=== PATIENT | female | born 1985 | race African-American/Black ===

== ENCOUNTER 2017-07-29 23:39 | Emergency (ER) | payer OTHER ==
[~2017-07-29 23:39] MED LIST: IBUP800T23 PO; PENI500T PO; PERI0.126 SWISH-SPIT
[2017-07-29 23:41] VITALS: BP 180/90; PULSE 96; RESP 16; TEMP 98.8; O2SAT 100
[2017-07-29] MEDS ORDERED: CLIN1CAP5 PO (23:59)
[2017-07-29] MEDS ORDERED: TYLETAB34 PO (23:59)
[2017-07-30] MEDS ORDERED: oxyCODONE/ACETAMINOPHEN 5 MG/325 MG TAB PO ONE
--- NOTE | 2017-07-30 | PD ---
HPI Chief Complaint: Oral / Dental Pain or Problem Time Seen by Provider: 23:49 Travel History International Travel<30 days: No Contact w/Intl Traveler<30days: No Traveled to known affect area: No History of Present Illness HPI Patient is a 31 year old female presenting to the Emergency Department for evaluation of right lower tooth pain. Pt states this has been ongoing for over a week, she reports being seen here last week and was given antibiotics and ibuprofen which she reports compliance with. She states the pain is a 10/10 and is aching and throbbing. She states she cannot bite down. She denies any fevers , chills, nausea or vomiting. PFSH Past Medical History Medical History: Denies Significant Hx Hypertension: Yes ?: Not LMP: 07/26/17 : 5 Para: 5 Past Surgical History Section: Yes (x4) Social History Alcohol Use: No Tobacco Use: Yes Substance Use: No Allergies-Medications (Allergen,Severity, Reaction): Coded Allergies: No Known Allergies (Unverified , 07/29/17) Reported Meds & Prescriptions Reported Meds & Active Scripts Active Clindamycin (Clindamycin HCl) 150 Mg Cap 300 Mg PO Q8HR 10 Days Tylenol-Codeine #3 (Acetaminophen-Codeine) 300-30 mg Tab 1 Tab PO Q4H PRN Peridex Liq (Chlorhexidine Gluconate (Mouth) Liq) 0.12% Soln 15 Ml SWISH-SPIT BID 14 Days Ibuprofen 800 Mg Tab 800 Mg PO Q8H PRN Penicillin V Potassium 500 Mg Tab 500 Mg PO Q6H 10 Days Review of Systems Except as stated in HPI: all other systems reviewed are Neg HENT: Positive: Dental Difficulties Physical Exam Narrative GENERAL: Well developed, well nourished female, appears uncomfortable in no distress acutely. SKIN: Warm and dry. HEAD: Normocephalic. EYES: No scleral icterus. No injection or drainage. MOUTH: Mucous membranes moist, no lesions, tongue and gums appear normal. Significant caries throughout mouth, teeth are missing or broken at the gum line. No obvious abscess noted.No edema noted. NECK: Supple, trachea midline. No JVD or lymphadenopathy. CARDIOVASCULAR: Regular rate and rhythm without murmurs, gallops, or rubs. RESPIRATORY: Breath sounds equal bilaterally. No accessory muscle use. GASTROINTESTINAL: Abdomen soft, non-tender, nondistended. MUSCULOSKELETAL: No cyanosis, or edema. BACK: Nontender without obvious deformity. No CVA tenderness. Data Data Last Documented VS Vital Signs Date Time Temp Pulse Resp B/P (MAP) Pulse Ox O2 Delivery O2 Flow Rate FiO2 07/30/17 00:03 07/29/17 23:41 98.8 96 16 100 Room Air Orders Orders Oxycodone-Acetamin 5-325 Mg (Percocet (07/30/17 00:00) MDM Medical Decision Making Medical Screen Exam Complete: Yes Emergency Medical Condition: Yes Medical Record Reviewed: Yes Interpretation(s) Vital Signs Date Time Temp Pulse Resp B/P (MAP) Pulse Ox O2 Delivery O2 Flow Rate FiO2 07/30/17 00:03 07/29/17 23:41 98.8 96 16 180/90 (120) 100 Room Air Differential Diagnosis dentalgia vs caries vs abscess vs neuralgia Narrative Course Pt has significant dental disease. VSS. Explained to patient that she needs to be seen and evaluated by a dentist. At this time we will change her antibiotics , she will be given a short course of pain medication. She was encouraged to return to the ED for any new or worsening symptoms. She was given a list of local dental clinics. She verbalized understanding. Pt is stable for discharge. Diagnosis Primary Impression: Dental caries Additional Impression: Pain, dental Referrals: Dentist 2 days Patient Instructions: Dental Caries (DC), General Instructions Additional Instructions: Follow up with a dentist Take medications as directed Return to the Emergency Department for new or worsening symptoms Med/Other Pt SpecificInfo: Prescription(s) given Scripts Clindamycin (Clindamycin) 150 Mg Cap 300 MG PO Q8HR for Infection for 10 Days, CAP 0 Refills Prov: Lauren Lyon 07/29/17 Acetaminophen-Codeine (Tylenol-Codeine #3) 300-30 mg Tab 1 TAB PO Q4H Y for PAIN, #10 TAB 0 Refills Prov: Lauren Lyon 07/29/17 Disposition: 01 DISCHARGE HOME Condition: Stable Lauren Lyon Jul 30, 2017 00:00
== END 2017-07-30 00:15 | disposition home or self-care (01) ==
LOC: NEPK 23:39
DX: K02.9 Dental caries, unspecified (principal)
CPT/HCPCS: 99284

== ENCOUNTER 2018-04-09 22:26 | Emergency (ER) | payer MEDICAID, OTHER ==
[~2018-04-09 22:26] MED LIST changes: +CLIN150C14 PO; +IBUP1TAB7 PO; -IBUP800T23 PO; +TYLETAB34 PO
[2018-04-09 22:51] VITALS: BP 171/101; PULSE 94; RESP 18; TEMP 98.2; O2SAT 100
[2018-04-09 23:32] VITALS: BP 157/100; PULSE 83; RESP 14; O2SAT 100
[2018-04-10] MEDS ORDERED: diphenhydrAMINE HCL 50 MG/ML VIAL IV PUSH ONE (00:30)
[2018-04-10] MEDS ORDERED: KETOROLAC TROMETHAMINE 30 MG/ML (IVP) VIAL IV PUSH ONE (00:30)
[2018-04-10] MEDS ORDERED: METOCLOPRAMIDE HCL 10 MG/2 ML VIAL IV PUSH ONE (00:30)
[2018-04-10] MEDS ORDERED: DEXAMETHASONE SOD PHOS 20 MG/5 ML VIAL IV PUSH ONE (00:30)
--- NOTE | 2018-04-10 03:33 | PD ---
HPI Chief Complaint: Headache Time Seen by Provider: 00:15 Travel History International Travel<30 days: No Contact w/Intl Traveler<30days: No Traveled to known affect area: No History of Present Illness HPI 32-year-old female with typical headache. She has a history of migraines and is experiencing a bad one. Patient is a smoker of more than a pack a day. She denies nausea vomiting. Headache is frontal and mostly on the right side. Pain is described as a squeezing. Onset was a few hours prior to arrival. PFSH Past Medical History Diminished Hearing: No Hypertension: Yes ?: Not LMP: 04/04/18 : 5 Para: 5 Past Surgical History Surgical History: No Previous Surgery Section: Yes (x4) Social History Alcohol Use: Yes Tobacco Use: Yes Substance Use: No Allergies-Medications (Allergen,Severity, Reaction): Coded Allergies: No Known Allergies (Unverified , 07/29/17) Reported Meds & Prescriptions Reported Meds & Active Scripts Active No Active Prescriptions or Reported Medications Review of Systems Except as stated in HPI: all other systems reviewed are Neg Neurologic: Positive: Headache Physical Exam Narrative GENERAL: 32-year-old female in moderate distress secondary to pain SKIN: Focused skin assessment warm/dry. HEAD: Atraumatic. Normocephalic. EYES: Pupils equal and round. No scleral icterus. No injection or drainage. ENT: No nasal bleeding or discharge. Mucous membranes pink and moist. NECK: Trachea midline. No meningismus CARDIOVASCULAR: Regular rate and rhythm. No murmur appreciated. RESPIRATORY: No accessory muscle use. Clear to auscultation. Breath sounds equal bilaterally. GASTROINTESTINAL: Abdomen soft, non-tender, nondistended. Hepatic and splenic margins not palpable. MUSCULOSKELETAL: No obvious deformities. No clubbing. No cyanosis. No edema. NEUROLOGICAL: Awake and alert. No obvious cranial nerve deficits. Motor grossly within normal limits. Normal speech. No cerebellar findings Data Data Last Documented VS Vital Signs Date Time Temp Pulse Resp B/P (MAP) Pulse Ox O2 Delivery O2 Flow Rate FiO2 04/09/18 23:32 83 14 157/100 (119) 100 Room Air 04/09/18 22:51 98.2 Orders Orders Ed Urine Pregnancytest Poc (04/10/18 00:18) Metoclopramide Inj (Reglan Inj) (04/10/18 00:30) Ketorolac Inj (Toradol Inj) (04/10/18 00:30) Diphenhydramine Inj (Benadryl Inj) (04/10/18 00:30) Dexamethasone Inj (Decadron Inj) (04/10/18 00:30) MDM Medical Decision Making Medical Screen Exam Complete: Yes Emergency Medical Condition: Yes Differential Diagnosis Migraine headache Narrative Course Patient was seen and evaluated in the emergency department. She was given normal saline Toradol Reglan Decadron and Benadryl. Her symptoms have completely resolved. Patient is discharged home Diagnosis Primary Impression: Migraine Qualified Codes: G43.909 - Migraine, unspecified, not intractable, without status migrainosus Scripts No Active Prescriptions or Reported Meds Disposition: 01 DISCHARGE HOME Condition: Good Ramandeep Stephenson DO Apr 10, 2018 03:33
== END 2018-04-10 04:08 | disposition home or self-care (01) ==
LOC: NEPC 22:26
DX: G43.909 Migraine, unspecified, not intractable, without status migrainosus (principal); F17.210 Nicotine dependence, cigarettes, uncomplicated
CPT/HCPCS: 96374; 96375; 99284; J1100; J1200; J1885; J2765

== ENCOUNTER 2018-04-12 12:47 | Observation (INO) | payer MEDICAID ==
[2018-04-12] VITALS (7 sets, daily range): BP systolic 146–177; BP diastolic 72–98; PULSE 70–80; RESP 16–20; TEMP 98.1–99; O2SAT 96–100
[~2018-04-12] VITALS: Ht 167.6 cm; Wt 73.0 kg
[2018-04-12] MEDS ORDERED: SODIUM CHLORIDE 0.9% FLUSH 10 ML FLUSH IVF PRN (13:30)
--- NOTE | 2018-04-12 13:48 | PD ---
HPI Chief Complaint: Syncope/Near-Syncope Time Seen by Provider: 13:22 Travel History International Travel<30 days: No Contact w/Intl Traveler<30days: No Traveled to known affect area: No History of Present Illness HPI 32-year-old female presents to emergency department via EMS after having a syncopal episode while at work today. He does not know she hit her head, but she did wake up on the floor. She reports waking up with nausea, vomiting, diarrhea this morning. She says she has been experiencing chest pain and shortness of breath for 1 week. 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 Chest pain is midsternal. Denies cardiac history. Denies fevers. She is having a headache and says she was seen here 3 days ago for her headache. Reports lower abdominal pain, over her bladder, and dysuria. She is on her menstrual cycle now. Reports recent travel by vehicle and just came home yesterday. Denies perceptual use. Reports tobacco use. Chest pain shortness of breath or worse with activity. No radiation of pain. Rates pain 7/10. Says she tried drinking apple cider for her symptom management. Has not tried any other medications or treatments to alleviate her symptoms. Describes it as a pressure. No primary care provider. History of toxemia, DVT, hypertension. No known allergies. Has no other medical complaints. No other modifying factors or associated signs and symptoms. [facility] Past Medical History Diminished Hearing: No Hypertension: Yes ?: Not LMP: 04/08/18 : 5 Para: 5 Past Surgical History Section: Yes (x4) Social History Alcohol Use: Yes Tobacco Use: Yes Substance Use: No Allergies-Medications (Allergen,Severity, Reaction): Coded Allergies: No Known Allergies (Unverified Allergy, Unknown, 04/12/18) Reported Meds & Prescriptions Reported Meds & Active Scripts Active No Active Prescriptions or Reported Medications Review of Systems Except as stated in HPI: all other systems reviewed are Neg Physical Exam Narrative GENERAL: Well-nourished, well-developed black female patient, in no acute distress; afebrile SKIN: Warm and dry. HEAD: Atraumatic. Normocephalic. EYES: Pupils equal and round. No scleral icterus. No injection or drainage. ENT: Mucosa pink and moist. Airway patent. NECK: Trachea midline. CARDIOVASCULAR: Regular rate and rhythm. No murmur appreciated. RESPIRATORY: No accessory muscle use. Clear to auscultation. Breath sounds equal bilaterally. GASTROINTESTINAL: Abdomen soft, nontender, nondistended; I am unable to elicit any tenderness on exam except for over the bladder and it is nondistended. Hepatic and splenic margins not palpable. Bowel sounds are active 4 quadrants. Nonrigid. No guarding. BACK: No CVA tenderness. MUSCULOSKELETAL: No obvious deformities. No clubbing. No cyanosis. No edema. NEUROLOGICAL: Awake and alert. Oriented 3. No obvious cranial nerve deficits. Motor grossly within normal limits. Normal speech. PSYCHIATRIC: Appropriate mood and affect; insight and judgment normal. Data Data Last Documented VS Vital Signs Date Time Temp Pulse Resp B/P (MAP) Pulse Ox O2 Delivery O2 Flow Rate FiO2 04/12/18 15:42 74 17 148/79 (102) 100 Room Air 04/12/18 12:57 99.0 Orders Orders Electrocardiogram (04/12/18 13:27) Basic Metabolic Panel (Bmp) (04/12/18 13:27) Ckmb (Isoenzyme) Profile (04/12/18 13:27) Complete Blood Count With Diff (04/12/18 13:27) Magnesium (Mg) (04/12/18 13:27) Prothrombin Time / Inr (Pt) (04/12/18 13:27) Act Partial Throm Time (Ptt) (04/12/18 13:27) Troponin I (04/12/18 13:27) Ecg Monitoring (04/12/18 13:27) Iv Access Insert/Monitor (04/12/18 13:27) Oximetry (04/12/18 13:27) Oxygen Administration (04/12/18 13:27) Sodium Chloride 0.9% Flush (Ns Flush) (04/12/18 13:30) Chest, Pa & Lat (04/12/18 13:27) Urinalysis - C+S If Indicated (04/12/18 13:27) Ed Urine Pregnancytest Poc (04/12/18 13:27) Ct Brain W/O Iv Contrast(Rout) (04/12/18 ) Ct Pulmonary Angiogram (04/12/18 ) Acetaminophen (Tylenol) (04/12/18 14:45) CKMB (04/12/18 14:00) CKMB% (04/12/18 14:00) Potassium Chloride (Kcl) (04/12/18 15:45) Iohexol 350 Inj (Omnipaque 350 Inj) (04/12/18 15:59) Admit Order (Ed Use Only) (04/12/18 16:33) Labs Laboratory Tests Test 04/12/18 14:00 04/12/18 14:10 White Blood Count 5.6 TH/MM3 Red Blood Count 5.17 MIL/MM3 Hemoglobin 8.7 GM/DL Hematocrit 28.3 % Mean Corpuscular Volume 54.8 FL Mean Corpuscular Hemoglobin 16.8 PG Mean Corpuscular Hemoglobin Concent 30.8 % Red Cell Distribution Width 23.8 % Platelet Count 236 TH/MM3 Mean Platelet Volume 8.3 FL CBC Comment AUTO DIFF Differential Total Cells Counted 100 Neutrophils % (Manual) 33 % Lymphocytes % 55 % Monocytes % 5 % Eosinophils % 6 % Basophils % 1 % Neutrophils # (Manual) 1.8 TH/MM3 Differential Comment FINAL DIFF MANUAL Platelet Estimate NORMAL Platelet Morphology Comment NORMAL Prothrombin Time 11.5 SEC Prothromb Time International Ratio 1.1 RATIO Activated Partial Thromboplast Time 27.3 SEC Blood Urea Nitrogen 6 MG/DL Creatinine 0.60 MG/DL Random Glucose 79 MG/DL Calcium Level 8.3 MG/DL Magnesium Level 2.0 MG/DL Sodium Level 143 MEQ/L Potassium Level 3.2 MEQ/L Chloride Level 110 MEQ/L Carbon Dioxide Level 21.5 MEQ/L Anion Gap 12 MEQ/L Estimat Glomerular Filtration Rate 138 ML/MIN Total Creatine Kinase 136 U/L Creatine Kinase MB LESS THAN 0.5 NG/ML Troponin I LESS THAN 0.02 NG/ML Urine Color Straw Urine Turbidity CLEAR Urine pH 8.0 Urine Specific [place] 1.004 Urine Protein NEG mg/dL Urine Glucose (UA) NEG mg/dL Urine Ketones TRACE mg/dL Urine Occult Blood LARGE Urine Nitrite NEG Urine Bilirubin NEG Urine Urobilinogen LESS THAN 2 mg/dL Urine Leukocyte Esterase NEG Urine RBC 6 /hpf Urine WBC LESS THAN 1 /hpf Urine Squamous Epithelial Cells 1 /hpf Urine Bacteria RARE /hpf Microscopic Urinalysis Comment CULT NOT INDICATED MDM Medical Decision Making Medical Screen Exam Complete: Yes Emergency Medical Condition: Yes Medical Record Reviewed: Yes Differential Diagnosis Gastroenteritis, dehydration, electrolyte imbalance, PE Narrative Course 32-year-old female with chest pain, shortness of breath 1 week with onset of nausea, vomiting, diarrhea and syncopal episode today. Arrived via EMS. Patient has history of DVTs. Is not on anticoagulant therapy. I discussed the patient with Dr. Lopez and she agrees with my plan of care and will evaluate the patient. EKG with normal sinus rhythm; no ST elevation or depression; reviewed by Dr. Lopez. 1529: CBC with signs of anemia; hemoglobin 8.7; Patient does not have any baseline labs to compare her levels to. Otherwise CMP unremarkable. 40 meq KCL ordered. CK-MB less than 0.5. Troponin less than 0.02. Urinalysis without signs of infection. 1629: Chest x-ray, head CT, CT pulmonary angiogram concludes: Chest X-Ray 04/12/18 1327 Signed Impressions: CONCLUSION: 1. No acute cardiopulmonary disease. Head CT 04/12/18 0000 Signed Impressions: CONCLUSION: 1. Negative for acute process CT Angiography 04/12/18 0000 Signed Impressions: CONCLUSION: 1. No CT evidence for pulmonary artery embolism. 2. 2.3 cm indeterminate low density lesion extending from the posterior right cardiac border, likely pericardial in etiology and most consistent with pericar dial cyst. 3. Otherwise, unremarkable CTA examination of the chest. Discussed lab and radiology findings with the patient. Discussed findings with Dr. Garcia also. Patient will be admitted into the chest pain center for further treatment and evaluation. Physician Communication Physician Communication DR[employer] PURCH[employer]ER Diagnosis Primary Impression: Episode of syncope Qualified Codes: R55 - Syncope and collapse Additional Impressions: Chest pain Qualified Codes: R07.9 - Chest pain, unspecified Vomiting and diarrhea Admitting Information Admitting Physician Requests: Observation Scripts No Active Prescriptions or Reported Meds Ro Gunderson Apr 12, 2018 13:48
--- NOTE | 2018-04-12 14:01 | PD ---
Physical Exam Date Seen by Provider: Apr 12, 2018 Time Seen by Provider: 13:59 Narrative 32-year-old female came to the emergency room with history of a syncopal episode. Patient says that she was nauseous and vomited this morning. She also has been having some shortness of breath since yesterday. She said she was coming back to her car and was hot when she had the episode. No history of chest pain just before she passed out. No history of palpitation. She is being seen by my nurse practitioner I am supervising her. Patient has history of DVT in the past few years ago and was on blood thinners. Currently she is not on any blood thinners. She is a heavy smoker and smokes marijuana as well. Vital signs were relatively stable. Awaiting for blood test and CT angiogram of the chest. Data Data Last Documented VS Vital Signs Date Time Temp Pulse Resp B/P (MAP) Pulse Ox O2 Delivery O2 Flow Rate FiO2 04/12/18 16:30 77 18 172/72 (105) 100 Room Air 04/12/18 12:57 99.0 Orders Orders Electrocardiogram (04/12/18 13:27) Basic Metabolic Panel (Bmp) (04/12/18 13:27) Ckmb (Isoenzyme) Profile (04/12/18 13:27) Complete Blood Count With Diff (04/12/18 13:27) Magnesium (Mg) (04/12/18 13:27) Prothrombin Time / Inr (Pt) (04/12/18 13:27) Act Partial Throm Time (Ptt) (04/12/18 13:27) Troponin I (04/12/18 13:27) Ecg Monitoring (04/12/18 13:27) Iv Access Insert/Monitor (04/12/18 13:27) Oximetry (04/12/18 13:27) Oxygen Administration (04/12/18 13:27) Sodium Chloride 0.9% Flush (Ns Flush) (04/12/18 13:30) Chest, Pa & Lat (04/12/18 13:27) Urinalysis - C+S If Indicated (04/12/18 13:27) Ed Urine Pregnancytest Poc (04/12/18 13:27) Ct Brain W/O Iv Contrast(Rout) (04/12/18 ) Ct Pulmonary Angiogram (04/12/18 ) Acetaminophen (Tylenol) (04/12/18 14:45) CKMB (04/12/18 14:00) CKMB% (04/12/18 14:00) Potassium Chloride (Kcl) (04/12/18 15:45) Iohexol 350 Inj (Omnipaque 350 Inj) (04/12/18 15:59) Admit Order (Ed Use Only) (04/12/18 16:33) Labs Laboratory Tests Test 04/12/18 14:00 04/12/18 14:10 White Blood Count 5.6 TH/MM3 Red Blood Count 5.17 MIL/MM3 Hemoglobin 8.7 GM/DL Hematocrit 28.3 % Mean Corpuscular Volume 54.8 FL Mean Corpuscular Hemoglobin 16.8 PG Mean Corpuscular Hemoglobin Concent 30.8 % Red Cell Distribution Width 23.8 % Platelet Count 236 TH/MM3 Mean Platelet Volume 8.3 FL CBC Comment AUTO DIFF Differential Total Cells Counted 100 Neutrophils % (Manual) 33 % Lymphocytes % 55 % Monocytes % 5 % Eosinophils % 6 % Basophils % 1 % Neutrophils # (Manual) 1.8 TH/MM3 Differential Comment FINAL DIFF MANUAL Platelet Estimate NORMAL Platelet Morphology Comment NORMAL Prothrombin Time 11.5 SEC Prothromb Time International Ratio 1.1 RATIO Activated Partial Thromboplast Time 27.3 SEC Blood Urea Nitrogen 6 MG/DL Creatinine 0.60 MG/DL Random Glucose 79 MG/DL Calcium Level 8.3 MG/DL Magnesium Level 2.0 MG/DL Sodium Level 143 MEQ/L Potassium Level 3.2 MEQ/L Chloride Level 110 MEQ/L Carbon Dioxide Level 21.5 MEQ/L Anion Gap 12 MEQ/L Estimat Glomerular Filtration Rate 138 ML/MIN Total Creatine Kinase 136 U/L Creatine Kinase MB LESS THAN 0.5 NG/ML Troponin I LESS THAN 0.02 NG/ML Urine Color Straw Urine Turbidity CLEAR Urine pH 8.0 Urine Specific [place] 1.004 Urine Protein NEG mg/dL Urine Glucose (UA) NEG mg/dL Urine Ketones TRACE mg/dL Urine Occult Blood LARGE Urine Nitrite NEG Urine Bilirubin NEG Urine Urobilinogen LESS THAN 2 mg/dL Urine Leukocyte Esterase NEG Urine RBC 6 /hpf Urine WBC LESS THAN 1 /hpf Urine Squamous Epithelial Cells 1 /hpf Urine Bacteria RARE /hpf Microscopic Urinalysis Comment CULT NOT INDICATED MDM Supervised Visit with KATHARINE: Yes Interpretation(s) Twelve-lead EKG was reviewed by me. Normal sinus rhythm, normal axis, nonspecific ST-T wave changes. Heart rate of 71 bpm. Scripts No Active Prescriptions or Reported Meds Sydnie Lopez MD Apr 12, 2018 14:01
[2018-04-12 14:17] LABS: HEMATOCRIT 28.3 % (35.0-46.0); HEMOGLOBIN 8.7 GM/DL (11.6-15.3); MEAN CELL VOLUME 54.8 FL (80.0-100.0); MEAN CORPUSCULAR HEMOGLOBIN 16.8 PG (27.0-34.0); MEAN CORPUSCULAR HGB CONC 30.8 % (32.0-36.0); MEAN PLATELET VOLUME 8.3 FL (7.0-11.0); PLATELET COUNT 236 TH/MM3 (150-450); RED BLOOD COUNT 5.17 MIL/MM3 (4.00-5.30); RED CELL DISTRIBUTION WIDTH 23.8 % (11.6-17.2); WHITE BLOOD COUNT 5.6 TH/MM3 (4.0-11.0)
[2018-04-12 14:30] LABS: INTERNATIONAL NORMALIZED RATIO 1.1 RATIO; PROTHROMBIN TIME - PATIENT 11.5 SEC (9.8-11.6)
[2018-04-12 14:35] LABS: BICARBONATE 21.5 MEQ/L (21.0-32.0); BLOOD UREA NITROGEN 6 MG/DL (7-18); CALCIUM 8.3 MG/DL (8.5-10.1); CHLORIDE 110 MEQ/L (98-107); GLOMERULAR FILTRATION RATE 138 ML/MIN (>89); GLUCOSE,RANDOM 79 MG/DL (74-106); SODIUM (NA) 143 MEQ/L (136-145)
[2018-04-12 14:38] LABS: TROPONIN I LESS THAN 0.02 NG/ML (0.02-0.05)
[2018-04-12 14:38] LABS: BACTERIA, URINE RARE /hpf; BILIRUBIN, URINE NEG (NEG); BLOOD, URINE LARGE (NEG); GLUCOSE,URINE NEG (NEG); KETONE, URINE TRACE mg/dL (NEG); NITRITE,URINE NEG (NEG); SQUAMOUS EPITHELIAL CELL URINE 1 /hpf (0-5); URINE COLOR Straw (YELLW/STRAW); URINE LEUKOCYTE ESTERASE NEG (NEG)
[2018-04-12] MEDS ORDERED: ACETAMINOPHEN 500 MG CPLT PO ONE (14:45)
--- NOTE | 2018-04-12 14:53 | RADRPT ---
EXAM DATE: 04/12/2018 2:19 PM EDT AGE/SEX: 32 years / Female INDICATIONS: Chest pain, nausea vomiting today. CLINICAL DATA: This is the patient's initial encounter. Patient reports that signs and symptoms have been present for 1 day and indicates a pain score of 5/10. MEDICAL/SURGICAL HISTORY: . smokes None. COMPARISON: No prior exams available for comparison. FINDINGS: PA and lateral views of the chest demonstrate the lungs to be symmetrically aerated without evidence of mass, infiltrate or effusion. The cardiomediastinal contours are unremarkable. Osseous structures are intact. CONCLUSION: 1. No acute cardiopulmonary disease. Electronically signed by: Norris Muro MD 04/12/2018 2:51 PM EDT
[2018-04-12 15:21] LABS: BASOPHILS 1 % (0-2); LYMPHOCYTES 55 % (9-44); MONOCYTES 5 % (0-8); NEUTROPHIL # MANUAL DIFF 1.8 TH/MM3 (1.8-7.7); POLYS (SEG NEUTROPHILS) 33 % (16-70)
[2018-04-12] MEDS ORDERED: POTASSIUM CHLORIDE 20 MEQ CONTROLLED RELEASE TAB PO ONE (15:45)
[2018-04-12] MEDS ORDERED: IOHEXOL 350 MG/ML 10 ML VIAL (for RAD DIAG) IVCONTRAST ONE (15:59)
--- NOTE | 2018-04-12 16:14 | RADRPT ---
EXAM DATE: 04/12/2018 4:04 PM EDT AGE/SEX: 32 years / Female INDICATIONS: Chest pain. CLINICAL DATA: This is the patient's initial encounter. Patient reports that signs and symptoms have been present for 1 day and indicates a pain score of 3/10. MEDICAL/SURGICAL HISTORY: Hypertension. section. RADIATION DOSE: 10.20 CTDI (mGy) COMPARISON: No prior exams available for comparison. TECHNIQUE: Volumetric scanning was performed using a multi-row detector CT scanner during bolus infu jenny of 75 ml Omnipaque 350 (iohexol) nonionic water-soluble contrast as a single exam dose. The dang a was post processed with a variety of visualization algorithms including full volume maximum intensi ty projection and sliding thin slab reformation. Using automated exposure control and adjustment of the mA and/or kV according to patient size, radiation dose was kept as low as reasonably achievable t o obtain optimal diagnostic quality images. DICOM format image data is available electronically for review and comparison. FINDINGS: Pulmonary Arteries: No filling defects are seen in the pulmonary arteries through the segmental vess els. The main pulmonary artery is normal in diameter. Lung: No significant focal parenchymal abnormalities. Pleura: No effusion, significant pleural thickening or pneumothorax. Mediastinum: There is a 2.3 cm indeterminate low density lesion extending from the posterior right c ardiac border at the level of the left atrium. Suspect this is pericardial in etiology and may reflec t a pericardial cyst. Heart is unremarkable without pericardial effusion. No significant mediastinal adenopathy. Osseous Structures: No abnormal focal lytic or blastic bony lesions. Other: Visulaized upper abdomen is unremarkable. CONCLUSION: 1. No CT evidence for pulmonary artery embolism. 2. 2.3 cm indeterminate low density lesion extending from the posterior right cardiac border, likely pericardial in etiology and most consistent with pericardial cyst. 3. Otherwise, unremarkable CTA examination of the chest. Electronically signed by: Norris Muro MD 04/12/2018 4:13 PM EDT
--- NOTE | 2018-04-12 16:27 | RADRPT ---
EXAM DATE: 04/12/2018 3:51 PM EDT AGE/SEX: 32 years / Female INDICATIONS: Syncope. CLINICAL DATA: This is the patient's initial encounter. Patient reports that signs and symptoms have been present for 1 day and indicates a pain score of 7/10. MEDICAL/SURGICAL HISTORY: Hypertension. section. RADIATION DOSE: 36.53 CTDI (mGy) COMPARISON: No prior exams available for comparison. TECHNIQUE: CT of the head without contrast. Using automated exposure control and adjustment of the mA and/or kV according to patient size, radiation dose was kept as low as reasonably achievable to ob tain optimal diagnostic quality images. FINDINGS: Cerebrum: The ventricles are normal for age. No evidence of midline shift, mass lesion, hemorrhage or acute infarction. No extraaxial fluid collections are seen. Posterior Fossa: The cerebellum and brainstem are intact. The 4th ventricle is midline. The cerebe llopontine angle is unremarkable. Extracranial: The visualized portion of the orbits is intact. Skull: The calvaria is intact. No evidence of skull fracture. CONCLUSION: 1. Negative for acute process Electronically signed by: Jeovany Liriano MD 04/12/2018 4:26 PM EDT
[2018-04-12] MEDS ORDERED: ACETAMINOPHEN 500 MG CPLT PO PRN (17:15)
[2018-04-12] MEDS ORDERED: NITROGLYCERIN 0.4 MG SL 25 TABS/BTL SL PRN (17:15)
[2018-04-12] MEDS ORDERED: SODIUM CHLORIDE 0.9% FLUSH 10 ML FLUSH IV FLUSH PRN (17:15)
[2018-04-12] MEDS ORDERED: ONDANSETRON ODT 4 MG TAB PO PRN (17:15)
[2018-04-12 18:09] LABS: TROPONIN I LESS THAN 0.02 NG/ML (0.02-0.05)
[2018-04-12] MEDS ORDERED: SODIUM CHLORIDE 0.9% FLUSH 10 ML FLUSH IV FLUSH SCH (21:00)
[2018-04-12 21:28] LABS: TROPONIN I LESS THAN 0.02 NG/ML (0.02-0.05)
[2018-04-13] MEDS ORDERED: ASPIRIN 325 MG TAB PO SCH (09:00)
--- NOTE | 2018-04-13 09:14 | EKG ---
Date Performed: 04/12/2018 Time Performed: 17:28:45 PTAGE: 32 years EKG: Sinus rhythm WITH SINUS ARRHYTHMIA VOLTAGE CRITERIA FOR LVH NONSPECIFIC T-WAVE ABNORMALITY ABNORMAL ECG Since PREVIOUS TRACING , no significant change noted PREVIOUS TRACIN04/12/2018 13.04 DOCTOR: Jammie Gamboa Interpretating Date/Time 04/13/2018 09:13:09
--- NOTE | 2018-04-13 16:53 | EKG ---
Date Performed: 04/12/2018 Time Performed: 13:04:44 PTAGE: 32 years EKG: Sinus rhythm VOLTAGE CRITERIA FOR LVH ABNORMAL ECG NO PREVIOUS TRACING DOCTOR: Killian Schroeder Interpretating Date/Time 04/13/2018 16:48:58
== END 2018-04-12 21:19 | disposition left against medical advice (07) ==
LOC: NEPD 12:47 → NEDA 16:35 → NEPHCDU 17:50
PROVIDERS: ADMIT Internal Medicine Cardiovascular Disease; ATTEND Internal Medicine Cardiovascular Disease
DX: R55 Syncope and collapse (principal); R11.2 Nausea with vomiting, unspecified; R19.7 Diarrhea, unspecified; R07.2 Precordial pain; R06.02 Shortness of breath; R51 Headache; R30.0 Dysuria; R10.30 Lower abdominal pain, unspecified; I10 Essential (primary) hypertension; D64.9 Anemia, unspecified; F17.200 Nicotine dependence, unspecified, uncomplicated; F12.90 Cannabis use, unspecified, uncomplicated; Z86.718 Personal history of other venous thrombosis and embolism
CPT/HCPCS: 70450; 71046; 71275; 80048; 81001; 82550; 82552; 83735; 84484; 84703; 85007; 85027; 85610; 85730; 93005; 99285; G0378; Q9967